=== PATIENT | female | born 1955 ===

== ENCOUNTER → 2018-05-18 13:42 | Outpatient (REF) | payer MEDICARE, SELFPAY ==
[2018-05-18 14:54] LABS: Blood Urea Nitrogen 13 mg/dL (7-17); Calcium 8.4 mg/dL (8.4-10.2); Carbon Dioxide 29 mmol/L (22-32); Chloride 103 mmol/L (98-107); Estimated Glomerular Filt Rate > 60.0 mL/min (>60); Glucose 81 mg/dL (80-110); HEMOLYSIS < 15 (0-50); Potassium 4.3 mmol/L (3.4-5.1); Sodium 143 mmol/L (137-145)
== END ==
LOC: LAB 13:42
PROVIDERS: Visit Provider Family Medicine
DX: E87.71 Transfusion associated circulatory overload (principal)
CPT/HCPCS: 80048